=== PATIENT | male | born 1990 | race African-American/Black ===

== ENCOUNTER 2017-01-15 05:51 | Day surgery (SDC) | payer OTHER ==
[~2017-01-15] VITALS: Ht 175.3 cm; Wt 83.5 kg
[~2017-01-15 05:51] MED LIST: CICL6.1H3 IH; NORT25CA PO; VENTOLIN HFA18 GM INH
[2017-01-15] MEDS ORDERED: IV RINGERS,LACTATED 1000ML 1,000 ML IV SCH (07:00)
[2017-01-15] MEDS ORDERED: LIDOCAINE 1% 1 ML SYRINGE. ID PRN (07:00)
[2017-01-15] MEDS ORDERED: ONDANSETRON PF 4 MG/2 ML VIAL. IV PRN (07:00)
[2017-01-15] MEDS ORDERED: HYDROmorphone 2 MG/ML VIAL IV PRN (07:00)
[2017-01-15] MEDS ORDERED: PROCHLORPERAZINE 10 MG/2 ML VIAL. IV PRN (07:00)
[2017-01-15] MEDS ORDERED: fentaNYL PF VIAL 100 MCG/2 ML VIAL IV PRN (07:00)
[2017-01-15] MEDS ORDERED: LIDOCAINE 1% PF 30 ML VIAL. ONE (07:05)
[2017-01-15] MEDS ORDERED: BUPIVACAINE MPF 0.5% 30 ML VIAL. ONE (07:06)
[2017-01-15] MEDS ORDERED: EPINEPHrine VIAL 30 MG/30 ML VIAL ONE (07:06)
[2017-01-15] MEDS ORDERED: ONDANSETRON PF 4 MG/2 ML VIAL. ONE (07:39)
[2017-01-15] MEDS ORDERED: DEXAMETHASONE SOD PHOS 20 MG/5 ML VIAL. ONE (07:39)
[2017-01-15] MEDS ORDERED: MIDAZOLAM HCL/PF 2 MG/2 ML VIAL. ONE (07:39)
[2017-01-15] MEDS ORDERED: LIDOCAINE 2% PF Vial for OR 5 ML VIAL. ONE (07:39)
[2017-01-15] MEDS ORDERED: fentaNYL PF VIAL 100 MCG/2 ML VIAL ONE ×3 (07:39→10:25)
[2017-01-15] MEDS ORDERED: PROPOFOL 20 ML IV ONE (07:39)
[2017-01-15] MEDS ORDERED: ePHEDrine PF IN SALINE 50 MG/5 ML DISP.SYRIN IV ONE (08:11)
[2017-01-15] MEDS ORDERED: SEVOFLURANE 61 TO 120 MINUTES. IH ONE (08:31)
[2017-01-15] MEDS ORDERED: SEVOFLURANE > 120 MINUTES. IH ONE (09:52)
[2017-01-15] MEDS ORDERED: PROCHLORPERAZINE 10 MG/2 ML VIAL. ONE (09:59)
--- NOTE | 2017-01-15 10:09 | DISCH ---
DISCHARGE INSTRUCTIONS Condition on Discharge Condition on Discharge: Stable Activity After Discharge Activity Instructions for Disc: Other, see below Other activity instructions: no strenuous activity/sports Bathing Instructions: Shower-keep dressing dry Lifting Instructions after Dis: No heavy lifting, No pulling or pushing Weight Bearing Status after Di: As tolerated Diet after Discharge Diet after Discharge: Regular Wound Incision Care Wound/Incision Care: Ice to area for comfort, Keep wound/cast CDI, Change dressing Contacting the DR. after DC Call your doctor for: Concerns you may have Follow-Up Follow up with: Travis in 2wks PAZ MINA II, MD Jan 15, 2017 10:09
--- NOTE | 2017-01-15 10:12 | PDOC ---
BRIEF OPERATIVE NOTE Date: Jan 15, 2017 Pre-Op Diagnosis R ACL tear, LM tear Post-Op Diagnosis same Procedure Performed R knee scope, auto hamstring ACL recon; PLM Surgeon Travis Receiving Room Clerk Iris Anesthesiologist Marni Anesthesia Type: General, Local Blood Loss 25mL Complications none PAZ MINA II, MD Jan 15, 2017 10:11
[2017-01-15] MEDS: fentaNYL PF VIAL 100 MCG/2 ML VIAL IV PRN ×4 (10:15→10:59)
[2017-01-15] MEDS ORDERED: MORPHINE SULFATE 2 MG/ML DISP.SYRIN. ONE (10:25)
[2017-01-15] MEDS: MORPHINE SULFATE 2 MG/ML DISP.SYRIN. IV PRN ×2 (10:27→10:56)
[2017-01-15] MEDS ORDERED: OXYC-323 PO (10:37)
[2017-01-15] MEDS ORDERED: TRAM50TA PO (10:38)
[2017-01-15] MEDS ORDERED: NAPR500T3 PO (10:38)
[2017-01-15] MEDS ORDERED: oxyCODONE/APAP 5/325 1 TAB TABLET ONE (10:45)
[2017-01-15] MEDS ORDERED: oxyCODONE/APAP 5/325 1 TAB TABLET PO ONE (11:00)
--- NOTE | 2017-01-15 11:43 | OP ---
DATE OF SURGERY: 01/15/2017 SURGEON: Jewel Mina MD. TANK TESTER: Maribel Simmons. PREOPERATIVE DIAGNOSES: 1. Right knee anterior cruciate ligament tear. 2. Right knee lateral meniscus tear. POSTOPERATIVE DIAGNOSES: 1. Right knee anterior cruciate ligament tear. 2. Right knee lateral meniscus tear. PROCEDURE PERFORMED: 1. Arthroscopic assisted autograft hamstring ACL reconstruction. 2. Arthroscopic partial lateral meniscectomy. COMPLICATIONS: None. ESTIMATED BLOOD LOSS: 25 mL. TOURNIQUET TIME: 70 minutes. COMPONENTS INSERTED: 1. [employer]hew 15 mm Endobutton. 2. Biomet TunneLoc 9 mm. FINDINGS: 1. The patient had intact cartilage at his trochlea. 2. Grade 2-3 changes at his central patella. 3. Grade 2 changes, lateral aspect medial femoral condyle from 30 to 60 degrees. 4. Intact medial meniscus. 5. Near complete ACL tear. 6. Intact PCL. 7. White-white zone bucket handle tear involving the posterior 50% of his lateral meniscus. COMPLICATIONS: None. REASON FOR PROCEDURE: The patient is a 26-year-old with symptomatic knee instability limiting his ability to work as well as participate in recreational activities. I had seen and evaluated him as an outpatient. For details, please see my outpatient consult note. After discussion of the risks, benefits and alternatives, he elected to proceed to the operating room for the above procedure. I did discuss graft twice with him as well as possibility of meniscal repair. DESCRIPTION OF PROCEDURE: The patient was greeted in the preoperative area by myself where the correct extremity was marked and verified. He was taken to the operative suite and antibiotics were started en route. Once in the OR, he was transferred gently supine to the operating room table where he was secured to the bed with all pressure points padded. He underwent successful induction of general anesthetic and then, we placed a nonsterile tourniquet to his right upper thigh and taped it in place. He had a padded footrest across the foot of the bed and a padded bolster at his lateral right hip to maintain his knee in 90 degrees of flexion. I then conducted my examination under anesthesia. He had a positive Delia without an endpoint. He had a positive pivot shift as well. Knee was stable to varus and valgus in extension and mid flexion and full passive range of motion. Next, we then proceeded to prep and drape right lower extremity in our usual sterile fashion and conducted a standard preoperative timeout. I then palpated, marked surface anatomy for possible open lateral meniscus incision, his hamstring harvest and his portals. I then incised skin over his hamstring harvest site of his proximal medial tibial region. I dissected subcutaneous tissue with electrocautery and identified the sartorial fascia as well as the borders of the hamstring tendons by palpation. I then used a tenotomy to incise the fascia in line with the hamstring tendons proximally. I then identified superior hamstring tendon and used a 90 degree clamp to clamp it adjacent to the tibia. I then used a scalpel to release the hamstrings off of the tibia, placing another 90 degree clamp on my inferior hamstring tendon. After this, I removed the overlying sartorial fascia and the tendons from their connections. I then placed a #2 Ultrabraid in a running whipstitch fashion through both of these ends and then delivered the hamstring tendons from the operative field. I then carried these back to the backtable and denuded the grafts of adherent connective tissue and muscle. I then cut the grafts to 22 cm. I then placed another whipstitch at the free ends of these. I then incised the grafts, it was a 9 femur, 9.5 tibia. After this, I placed him through the Endobutton and placed him under tension and wrapped it in a moistened lap on the backtable. While my orthotic assistant was helping me with this, I then redirected my attention to the operative field. The extremity was exsanguinated with an Esmarch and the tourniquet was insufflated to 250 mmHg. I then made my standard anterolateral arthroscopic portal and introduced a blunt arthroscopic trocar in the suprapatellar pouch. I then conducted my diagnostic arthroscopy and upon entering the medial compartment I used a spinal needle to localize an anteromedial portal. I then continued on with my diagnostic arthroscopy, Debriding the ACL as well as performing the partial lateral meniscectomy. His lateral meniscus tear was not repairable at all and was clearly in the white-white zone, so I cut the one end of this bucket type tear and then used a shaver to trim back the rest. His lateral meniscus and remainder of his meniscus was still stable to probing. I then used a combination of shaver and open ended curette to debride the medial wall of the lateral femoral condyle and then inspected this to locate my ACL footprint. I then used a microfracture awl to mary the spot. I then placed the camera and anteromedial portal and then inspected the spot again and was happy with its position. After this, I then used my tip guide to place my tibial tunnel referencing the ACL footprint on the tibia as well as the posterior edge of the anterior horn of the lateral meniscus. I had advanced the Beath pin and then reamed over this with closed ended curette protecting the tip of the Beath pin. I then debrided or cleared out this hole and placed the plug. I then used a #6 over the top guide with the knee in hyperflexion to advance the Beath pin which ended up about 0.5 mm anterior to my microfracture awl hole and I was happy with this. I advanced the Beath pin through both cortices and then removed the over the top guide and then used the Endobutton reamer through both cortices. After this, I removed the Beath pin and measured my tunnel, it was 40 mm. I then reintroduced the Beath pin and then reamed with 9 Cool reamer to approximately 33-34 mm. After this, I relaxed the knee and removed all loose bony debris from the knee and inspected my tunnel from an anteromedial portal and noted an intact lateral wall and posterior wall. I then reintroduced the camera through the anterolateral portal as well as ranged this Beath pin and which had exited through the skin. I then used this Beath pin to shuttle a #2 Ultrabraid sutures through the femoral hole, which was clamped lateral to the thigh. I then used a loop grasper to pull the closed loop of this Ultrabraid through the tibial tunnel. I then shuttled my ACL into place confirming this with appropriate toggle of the Endobutton which greatly diminished maximal backward traction on the graft. I then repeatedly cycled the knee after checking my graft position which I was happy with. After this, I held the knee in about 20 degrees of flexion and then used the nitinol wire in between strands of the graft and then impacted the TunneLoc device into position after appropriately tensioning this. I then reintroduced the camera through an anterolateral portal and inspected my graft position. There was no impingement. I felt the graft position and orientation were appropriate. I then inserted the camera and shaver in the suprapatellar pouch and an orthotic assistant used vigorous palpation of the posterior knee while I performed repeated aspiration maneuvers to remove any loose debris. After this, I removed all excess arthroscopic fluid and the arthroscopic instrumentation. The portals were closed with simple interrupted #2 nylon. I used the outer sheath of the arthroscopic shaver and inserted this into the region of the hamstring harvest. I then used this to inject about 10 mL of a local anesthetic mixture and the hamstring harvest site. I then reapproximated sartorial fascia with simple interrupted #1 Vicryl. After this, an inverted interrupted 2-0 was used for subcutaneous tissue and running 4-0 Monocryl for the skin. The leg was cleansed, dried and sterile dressing was applied followed to an Rasta wrap to his right lower extremity. He was then placed into a hinged knee brace left open. He tolerated surgery well. Prior to completion of wound closure, all counts were reported correct x 2. No complications. At the conclusion of surgery, he was awakened from anesthesia and transferred gently supine to the recovery room cart and taken to PACU in stable and extubated condition. Postop plan is weightbearing as tolerated. [facility] and see me back in 2 weeks, sooner should problems arise. JEWEL MINA MD DR: QUINCY/hillary JOB#: [id number] / [id number] NICKO
[2017-01-15 11:50] VITALS: BP 154/51
== END 2017-01-15 12:28 ==
LOC: SURG 05:51
PROVIDERS: ATTEND Orthopaedic Surgery Sports Medicine
DX: S83.511A Sprain of anterior cruciate ligament of right knee, initial encounter (principal); S83.251A Bucket-handle tear of lateral meniscus, current injury, right knee, initial encounter; X58.XXXA Exposure to other specified factors, initial encounter; Y93.89 Activity, other specified; Y92.89 Other specified places as the place of occurrence of the external cause; Y99.8 Other external cause status; J45.909 Unspecified asthma, uncomplicated
CPT/HCPCS: 29881; 29888; 97116; 97162; J0171; J0690; J1100; J2250; J2270; J2405; J2704; J3010; J3490; C1713; C1782; J0780; J2001

== ENCOUNTER 2019-06-18 05:25 | Emergency (ER) | payer SELFPAY ==
[~2019-06-18] VITALS: Ht 175.3 cm; Wt 90.0 kg
[~2019-06-18 05:25] MED LIST changes: +NAPR-514 PO; +OXYC1TAB15 PO; +TRAM50TA PO
[2019-06-18] MEDS ORDERED: MORPHINE SULFATE 10 MG/ML VIAL. SQ ONE (07:00)
--- NOTE | 2019-06-18 07:51 | RAD ---
EXAM: CT Lumbar Spine without IV contrast INDICATION: Low back pain TECHNIQUE: Multi-detector row CT images were obtained through the lumbar spine without the use of IV contrast. Post-processing sagittal and coronal reconstructed images were obtained for interpretation. All CT scans performed at this facility utilize dose optimization techniques as appropriate to the exam, including the following: Automated exposure control and adjustment of the mA and/or KV according to patient size (this includes techniques or standardized protocols for targeted exams where dose is indication/reason for exam). COMPARISON: None available. FINDINGS: The lowest fully formed disc is referred to as the L5-S1 level. ALIGNMENT: Alignment is within normal limits. OSSEOUS: No evidence of fracture or bone destruction. DISC SPACES: The L5-S1 disc shows diffuse bulging with mild loss of height and in association with mild uncovertebral hypertrophy results in mild bilateral foraminal narrowing. FACET JOINTS: Unremarkable. SPINAL CANAL: L5-S1, diffuse disc bulge asymmetric to the left results in mild deformity of the thecal sac and abutment of the protruding disc against the descending left S1 nerve root. NEUROFORAMINA: Unremarkable. SOFT TISSUES: Unremarkable. IMPRESSION: Mild disc degenerative change at the lumbosacral junction resulting in mild bilateral foraminal narrowing at L5-S1 and disc protrusion contact with the descending left S1 nerve root. Correlate with the clinical exam. Otherwise unremarkable L-spine CT without IV or intrathecal contrast. Electronically signed by: Wagner Colbert MD (06/18/2019 7:47 AM) [facility]
--- NOTE | 2019-06-18 08:19 | PHYS DOC ---
Past Medical History Smoking Status: Never Smoker Alcohol Use: None Adult General Chief Complaint Chief Complaint: BACK PAIN OR INJURY HPI HPI Patient is a 29 year old male with history of asthma who presents via EMS with complaint of back pain. Patient complaining of left-sided low back pain since yesterday that happened suddenly after he was bending without fall or injury as a constant sharp pain with radiation to posterior of left thigh. Patient rated his pain 10 over 10 and states he had the same pain one month ago that improved with treatment but still has numbness of the left toes for the last 1 month. Patient states she plan to have MRI of the following with a free clinic. Patient denies urinary and bowel incontinence, focal weakness, abdominal pain, nausea and vomiting, urinary frequency and dysuria, using drugs or alcohol. Review of Systems Review of Systems Constitutional: Denies fever or chills [] Eyes: Denies change in visual acuity, redness, or eye pain [] HENT: Denies nasal congestion or sore throat [] Respiratory: Denies cough or shortness of breath [] Cardiovascular: No additional information not addressed in HPI [] GI: Denies abdominal pain, nausea, vomiting, bloody stools or diarrhea [] : Denies dysuria or hematuria [] Musculoskeletal: Reports back pain Integument: Denies rash or skin lesions [] Neurologic: Denies headache, focal weakness or sensory changes [] Endocrine: Denies polyuria or polydipsia [] All other systems were reviewed and found to be within normal limits, except as documented in this note. Current Medications Current Medications Current Medications Medications (Trade) Dose Ordered Sig/[facility] Start Time Stop Time Status Last Admin Dose Admin Morphine Sulfate (Morphine Sulfate) 5 mg 1X ONCE 06/18/19 07:00 06/18/19 07:01 DC 06/18/19 07:25 5 MG Allergies Allergies Allergies Coded Allergies Type Severity Reaction Last Updated Verified No Known Drug Allergies 01/15/17 No Physical Exam Physical Exam Constitutional: Well developed, well nourished, no acute distress, non-toxic appearance. [] HENT: Normocephalic, atraumatic, bilateral external ears normal, oropharynx moist, no oral exudates, nose normal. [] Eyes: PERRLA, EOMI, conjunctiva normal, no discharge. [] Neck: Normal range of motion, no tenderness, supple, no stridor. [] Cardiovascular:Heart rate regular rhythm, no murmur [] Lungs & Thorax: Bilateral breath sounds clear to auscultation [] Abdomen: Bowel sounds normal, soft, no tenderness, no masses, no pulsatile masses. [] Skin: Warm, dry, no erythema, no rash. [] Back: No tenderness, no CVA tenderness. [] Extremities: No tenderness, no cyanosis, no clubbing, ROM intact, no edema. [] Neurologic: Alert and oriented X 3, normal motor function, normal sensory function, no focal deficits noted. [] Psychologic: Affect normal, judgement normal, mood normal. [] Current Patient Data Vital Signs Vital Signs Date Time Temp Pulse Resp B/P (MAP) Pulse Ox O2 Delivery O2 Flow Rate FiO2 06/18/19 08:26 64 16 112/71 (85) 96 Room Air 06/18/19 05:33 98.6 98.6 Lab Values Laboratory Tests Test 06/18/19 08:15 Urine Collection Type Unknown Urine Color Yellow Urine Clarity Clear Urine pH 5.5 Urine Specific [place] >=1.030 Urine Protein Negative mg/dL (NEG-TRACE) Urine Glucose (UA) Negative mg/dL (NEG) Urine Ketones (Stick) Negative mg/dL (NEG) Urine Blood Negative (NEG) Urine Nitrite Negative (NEG) Urine Bilirubin Negative (NEG) Urine Urobilinogen Dipstick 0.2 mg/dL (0.2 mg/dL) Urine Leukocyte Esterase Negative (NEG) Urine RBC 0 /HPF (0-2) Urine WBC Occ /HPF (0-4) Urine Squamous Epithelial Cells None /LPF Urine Bacteria 0 /HPF (0-FEW) Urine Mucus Mod /LPF Urine Opiates Screen Neg (NEG) Urine Methadone Screen Neg (NEG) Urine Barbiturates Neg (NEG) Urine Phencyclidine Screen Neg (NEG) Urine Amphetamine/Methamphetamine Neg (NEG) Urine Benzodiazepines Screen Neg (NEG) Urine Cocaine Screen Neg (NEG) Urine Cannabinoids Screen Neg (NEG) Urine Ethyl Alcohol Neg (NEG) EKG EKG [] Radiology/Procedures Radiology/Procedures [][facility] [address] [place] [address] IMAGING REPORT Signed PATIENT: ALEX GARCIA ACCOUNT: [id number] : 1990 LOCATION: ER AGE: 29 SEX: M EXAM STATUS: REG ER ORD. PHYSICIAN: MEME TOM MD REASON: low back pain PROCEDURE: CT LUMBAR SPINE WO CONTRAST EXAM: CT Lumbar Spine without IV contrast INDICATION: Low back pain TECHNIQUE: Multi-detector row CT images were obtained through the lumbar spine without the use of IV contrast. Post-processing sagittal and coronal reconstructed images were obtained for interpretation. All CT scans performed at this facility utilize dose optimization techniques as appropriate to the exam, including the following: Automated exposure control and adjustment of the mA and/or KV according to patient size (this includes techniques or standardized protocols for targeted exams where dose is indication/reason for exam). COMPARISON: None available. FINDINGS: The lowest fully formed disc is referred to as the L5-S1 level. ALIGNMENT: Alignment is within normal limits. OSSEOUS: No evidence of fracture or bone destruction. DISC SPACES: The L5-S1 disc shows diffuse bulging with mild loss of height and in association with mild uncovertebral hypertrophy results in mild bilateral foraminal narrowing. FACET JOINTS: Unremarkable. SPINAL CANAL: L5-S1, diffuse disc bulge asymmetric to the left results in mild deformity of the thecal sac and abutment of the protruding disc against the descending left S1 nerve root. NEUROFORAMINA: Unremarkable. SOFT TISSUES: Unremarkable. IMPRESSION: Mild disc degenerative change at the lumbosacral junction resulting in mild bilateral foraminal narrowing at L5-S1 and disc protrusion contact with the descending left S1 nerve root. Correlate with the clinical exam. Otherwise unremarkable L-spine CT without IV or intrathecal contrast. Electronically signed by: Jian Barrera MD (06/18/2019 7:47 AM) [facility] DICTATED and SIGNED BY: JIAN BARRERA MD DATE: 06/18/19 0747 Course & Med Decision Making Course & Med Decision Making Pertinent Labs and Imaging studies reviewed. (See chart for details) Evaluation of patient in ER showed 29-year-old male patient with low back pain yesterday without direct injury. CT showed mild bulging of disc and UA was unremarkable. Patient treated with morphine and felt better. Patient was advised to follow up with primary care physician for further evaluation. I've spoken with the patient and/or caregivers. I've explained the patient's condition, diagnosis and treatment plan based on information available to me at this time. I've answered the patient's and/or caregivers questions and addressed any concerns. The patient and/or caregivers have a good understanding the patient's diagnosis, condition and treatment plan as can be expected at this point. Vital signs have been stabilized. The patient's condition is stable for discharge from the emergency department. The patient will pursue further outpatient evaluation with her primary care provider or other designated consulting physician as outlined in the discharge instructions. Patient and/or caregivers are agreeable to this plan of care and follow-up instructions have been explained in detail. The patient and/or caregivers have received these instructions in written format and expressed understanding of these discharge instructions. The patient and her caregivers are aware that if any significant change in condition or worsening of symptoms should prompt him to immediately return to this of the closest emergency department. If an emergent department is not readily available I would encourage him to call 911. Maryam Disclaimer Dragon Disclaimer This electronic medical record was generated, in whole or in part, using a voice recognition dictation system. Departure Departure Impression: Primary Impression: Acute left lumbar radiculopathy Additional Impression: Sciatica Disposition: HOME, SELF-CARE (at 0848) Condition: IMPROVED Referrals: NO PCP (PCP) Patient Instructions: Lumbosacral Radiculopathy, Sciatica Additional Instructions: Drink plenty of liquids Follow-up with your primary care physician in 3-5 days Return to ER if not getting better Apply ice on your back Thank you for visiting [facility]. We appreciate you trusting us with your care. If any additional problems come up don't hesitate to return to visit us. Please follow up with your primary care provider so they can plan additional care if needed and know about the problem that you had. If symptoms worsen come back to the Emergency Department. Any concerning symptoms that start such as chest pain, shortness of air, weakness or numbness on one side of the body, running high fevers or any other concerning symptoms return to the ER. Scripts Naproxen (NAPROSYN) 500 Mg Tablet 1 TAB PO BID for pain, #20 TAB Prov: MEME TOM MD 06/18/19 Methylprednisolone (MEDROL) 4 Mg Tab.ds.pk 1 PKG PO UD for inflammation, #1 PKG Prov: MEME TOM MD 06/18/19 Cyclobenzaprine Hcl (CYCLOBENZAPRINE HCL) 10 Mg Tablet 1 TAB PO TID, #21 TAB Prov: MEME TOM MD 06/18/19 Problem Qualifiers Additional Impression: Sciatica Laterality: left Qualified Codes: M54.32 - Sciatica, left side MEME TOM MD Jun 18, 2019 08:18
[2019-06-18 08:26] VITALS: BP 112/71
[2019-06-18 08:30] LABS: BILIRUBIN,URINE NEGATIVE (NEG); CLARITY,URINE CLEAR; COLOR,URINE YELLOW; NITRITE,URINE NEGATIVE (NEG); PH,URINE 5.5; PROTEIN,URINE NEGATIVE (NEG-TRACE); UROBILINOGEN,URINE 0.2 mg/dL (0.2 mg/dL)
[2019-06-18 08:33] LABS: BARBITURATES NEG (NEG); BENZODIAZEPINES NEG (NEG); CANNABINOIDS NEG (NEG); COCAINE NEG (NEG); METHADONE NEG (NEG); OPIATES NEG (NEG); PHENCYCLIDINE NEG (NEG)
[2019-06-18 08:34] LABS: AMPHETAMINE/METHAMPHETAMINE NEG (NEG)
[2019-06-18] MEDS ORDERED: CYCL10TA2 PO (08:50)
[2019-06-18] MEDS ORDERED: NAPR-683 PO (08:50)
[2019-06-18] MEDS ORDERED: METH4TAB2 PO (08:50)
[2019-06-18 09:00] LABS: BACTERIA,URINE 0 /HPF (0-FEW); RBC,URINE 0 /HPF (0-2); WBC,URINE OCC /HPF (0-4)
== END 2019-06-18 09:16 | disposition home or self-care (01) ==
LOC: ER 05:25
DX: M54.16 Radiculopathy, lumbar region (principal); M54.32 Sciatica, left side
CPT/HCPCS: 72131; 80307; 81001; 96372; 99285; J2270

== ENCOUNTER 2021-05-21 19:27 | Emergency (ER) | payer SELFPAY ==
[~2021-05-21 19:27] MED LIST changes: +CYCL10TA19 PO; +METH4TAB2 PO; +NAPR-683 PO
[2021-05-21] MEDS ORDERED: HYDROcodone/APAP 5/325MG 1 TAB TABLET PO ONE (21:45)
[2021-05-21] MEDS ORDERED: CYCLOBENZAPRINE 10 MG TABLET. PO ONE (21:45)
--- NOTE | 2021-05-21 22:51 | PHYS DOC ---
Past Medical History Smoking Status: Never Smoker Alcohol Use: None General Adult EDM: Chief Complaint: MECHANICAL FALL HPI: HPI: Patient is a 31 year old male with previous history of back surgery presenting today complaining of moderate pain to the lower back, symptoms began on Friday after he slipped on ice and fell landing on his bottom. Patient denies any loss of consciousness. Denies hitting his head on the ground. He states the pain radiates to the left lower extremity with numbness and tingling to the left toes. He states the numbness and tingling as well as radiation of the pain is not new. Patient denies any loss of bowel/bladder function. He states he went to [facility] but left without being seen because the people "were rude" Review of Systems: Review of Systems: Constitutional: Denies fever or chills. [] Eyes: Denies change in visual acuity. [] HENT: Denies nasal congestion or sore throat. [] Respiratory: Denies cough or shortness of breath. [] Cardiovascular: Denies chest pain or edema. [] GI: Denies abdominal pain, nausea, vomiting, bloody stools or diarrhea. [] : Denies dysuria. [] Musculoskeletal: Reports low back pain radiating to the left lower extremity Integument: Denies rash. [] Neurologic: Denies headache, focal weakness or sensory changes. [] Psychiatric: Denies depression or anxiety. [] Heart Score: C/O Chest Pain: N/A Risk Factors: Risk Factors: DM, Current or recent (<one month) smoker, HTN, HLP, family history of CAD, obesity. Risk Scores: Score 0 - 3: 2.5% MACE over next 6 weeks - Discharge Home Score 4 - 6: 20.3% MACE over next 6 weeks - Admit for Clinical Observation Score 7 - 10: 72.7% MACE over next 6 weeks - Early Invasive Strategies Current Medications: Current Medications Medications (Trade) Dose Ordered Sig/Kaleb Start Time Stop Time Status Last Admin Dose Admin Acetaminophen/ Hydrocodone Bitart (Lortab 5/325) 2 tab 1X ONCE 05/21/21 21:45 05/21/21 21:46 DC Cyclobenzaprine HCl (Flexeril) 10 mg 1X ONCE 05/21/21 21:45 05/21/21 21:46 DC Naproxen (Naprosyn) 500 mg 1X STAT 05/21/21 21:43 05/21/21 21:46 DC Allergies: Allergies: Allergies Coded Allergies Type Severity Reaction Last Updated Verified No Known Drug Allergies 01/15/17 No Physical Exam: PE: Constitutional: Well developed, well nourished, no acute distress, non-toxic appearance. [] HENT: Normocephalic, atraumatic, bilateral external ears normal, oropharynx moist, no oral exudates, nose normal. [] Eyes: PERRLA, EOMI, conjunctiva normal, no discharge. [] Neck: Normal range of motion, no tenderness, supple, no stridor. [] Cardiovascular:Heart rate regular rhythm, no murmur [] Lungs & Thorax: Bilateral breath sounds clear to auscultation [] Abdomen: Bowel sounds normal, soft, no tenderness, no masses, no pulsatile masses. [] Skin: Warm, dry, no erythema, no rash. [] Back: Old healed surgical incision noted on the lumbar spine, diffuse paraspinal muscle tenderness as well as midline lumbar spine tenderness, no CVA tenderness. Straight leg raise was not attempted, patient comfortable in sitting position Extremities: No tenderness, no cyanosis, no clubbing, ROM intact, no edema. [] Neurologic: Alert and oriented X 3, normal motor function, normal sensory function, no focal deficits noted. [] Psychologic: Affect normal, judgement normal, mood normal. [] EKG: EKG: [] Radiology/Procedures: Radiology/Procedures: []PROCEDURE: CT LUMBAR SPINE WO CONTRAST CT LUMBAR SPINE WO History:Reason: fall pain / Spl. Instructions: / History: Technique: Noncontrast CT was performed of the lumbar spine. Multiplanar kwan nstructions were performed. Exposure: One or more of the following individualized dose reduction techniques were utilized for this examination: 1. Automated exposure control 2. Adjustment of the mA and/or kV according to patient size 3. Use of iterative reconstruction technique. Comparison: None Findings: Mild retrolisthesis L5 on S1. Normal vertebral body height. No acute fracture. T12-L1: No canal or neuroforaminal narrowing. L1-L2: No canal or neuroforaminal narrowing. L2-L3: Small disc bulge. No canal or neuroforaminal narrowing. L3-L4: Small disc bulge. No canal or neuroforaminal narrowing. L4-L5: Moderate central disc protrusion. Mild canal narrowing. Bilateral subarticular recess narrowing with probable abutment of the descending L5 nerve roots. Mild bilateral neuroforaminal narrowing. Mild facet arthropathy. L5-S1: Broad-based disc bulge. Mild subarticular recess narrowing. Slight abutment of the descending S1 nerve roots. Mild facet arthropathy. Moderate bilateral neuroforaminal narrowing. Impression: 1. No acute osseous abnormality. 2. Multilevel lumbar spondylosis most prominent L4-5 and L5-S1. 3. L4-L5 disc protrusion contributing to mild canal narrowing and subarticular recess narrowing with probable abutment of descending L5 nerve roots. 4. Neuroforaminal narrowing most prominent L5-S1. Electronically signed by: Boone Araujo DO (05/21/2021 11:04 PM) [facility] DICTATED and SIGNED BY: BOONE ARAUJO DO DATE: 05/21/21 [id number] 0 Course & Med Decision Making: Course & Med Decision Making Pertinent Labs and Imaging studies reviewed. (See chart for details) This is a 31-year-old male patient presented to the ED today with low back pain after falling on Friday last week. No cauda equina syndrome symptoms. CT of the lumbar spine is negative for any acute findings. Discharge to home. Follow-up with PCP in 1 week, also instructed to follow-up with his own neurosurgeon of the provided neurosurgeon. Maryam Disclaimer: Dragubaldo Disclaimer: This electronic medical record was generated, in whole or in part, using a voice recognition dictation system. Departure Departure Impression: Primary Impression: Fall Qualified Codes: W19.XXXA - Unspecified fall, initial encounter Additional Impressions: Low back pain Qualified Codes: M54.50 - Low back pain, unspecified Lumbar contusion Qualified Codes: S30.0XXA - Contusion of lower back and pelvis, initial encounter Disposition: HOME / SELF CARE / HOMELESS Condition: STABLE Referrals: UNKNOWN PCP NAME (PCP) VIKASH HANSEN MD follow up in one week Patient Instructions: Back Pain, Adult Additional Instructions: You were seen for back pain after falling. Your CT of the lumbar spine is negative for any acute findings. Please follow-up with your neurosurgery or the provided neurosurgeon in 1 to 2 weeks. Scripts Hydrocodone Bit/Acetaminophen (HYDROCODONE-APAP 5-325 ) 1 Tab Tablet 1 TAB PO PRN Q6HRS PRN for PAIN, #8 TAB 0 Refills Prov: LEVI DÍAZ APRN 05/21/21 Naproxen (NAPROXEN) 500 Mg Tablet.dr 1 TAB PO BID, #14 TAB Prov: LEVI DÍAZ APRN 05/21/21 Cyclobenzaprine Hcl (CYCLOBENZAPRINE HCL) 10 Mg Tablet 1 TAB PO TID, #30 TAB Prov: LEVI DÍAZ APRN 05/21/21 LEVI DÍAZ APRN May 21, 2021 22:51
--- NOTE | 2021-05-21 23:07 | RAD ---
CT LUMBAR SPINE WO History:Reason: fall pain / Spl. Instructions: / History: Technique: Noncontrast CT was performed of the lumbar spine. Multiplanar reconstructions were perform ed. Exposure: One or more of the following individualized dose reduction techniques were utilized for thi s examination: 1. Automated exposure control 2. Adjustment of the mA and/or kV according to patient size 3. Use of iterative reconstruction technique. Comparison: None Findings: Mild retrolisthesis L5 on S1. Normal vertebral body height. No acute fracture. T12-L1: No canal or neuroforaminal narrowing. L1-L2: No canal or neuroforaminal narrowing. L2-L3: Small disc bulge. No canal or neuroforaminal narrowing. L3-L4: Small disc bulge. No canal or neuroforaminal narrowing. L4-L5: Moderate central disc protrusion. Mild canal narrowing. Bilateral subarticular recess narrowi ng with probable abutment of the descending L5 nerve roots. Mild bilateral neuroforaminal narrowing. Mild facet arthropathy. L5-S1: Broad-based disc bulge. Mild subarticular recess narrowing. Slight abutment of the descending S1 nerve roots. Mild facet arthropathy. Moderate bilateral neuroforaminal narrowing. Impression: 1. No acute osseous abnormality. 2. Multilevel lumbar spondylosis most prominent L4-5 and L5-S1. 3. L4-L5 disc protrusion contributing to mild canal narrowing and subarticular recess narrowing with probable abutment of descending L5 nerve roots. 4. Neuroforaminal narrowing most prominent L5-S1. Electronically signed by: Boone Leonard DO (05/21/2021 11:04 PM) [facility]
[2021-05-21] MEDS ORDERED: NAPR500T8 PO (23:26)
[2021-05-21] MEDS ORDERED: HYDR-2761 PO (23:26)
[2021-05-21] MEDS ORDERED: CYCL10TA19 PO (23:26)
[2021-05-22] MEDS: NAPROXEN 500 MG TABLET PO STA ×2 (00:22→00:27)
== END 2021-05-22 00:28 | disposition home or self-care (01) ==
LOC: ER 19:27
DX: S30.0XXA Contusion of lower back and pelvis, initial encounter (principal); W00.0XXA Fall on same level due to ice and snow, initial encounter; Y93.89 Activity, other specified; Y92.89 Other specified places as the place of occurrence of the external cause; Y99.8 Other external cause status
CPT/HCPCS: 72131; 99284-25